=== PATIENT | male | born 1950 | race Caucasian/White ===

== ENCOUNTER 2016-04-28 13:16 | Outpatient (CLI) | payer MEDICARE ==
--- NOTE | 2016-04-28 17:14 | DIAGNOSTIC IMAGING REPORT ---
PROCEDURE: US VENOUS - BILATERAL EXT INDICATION: Bilateral nonhealing pretibial wounds. Lower extremity edema. TECHNIQUE: Duplex sonography of the deep venous system in the bilateral lower extremities was performed in the upright and semi-upright position. Compression and augmentation techniques were used. COMPARISON: None. FINDINGS: Right lower extremity: There is valvular incompetence in the right common femoral vein (1.4 seconds, 18 mm). The right superficial femoral vein is competent. There is valvular incompetence in the right greater saphenous vein (2.2 seconds, maximal diameter 6 mm). Left lower extremity: There is no evidence of valvular incompetence in the deep or superficial venous system of the left lower extremity. IMPRESSION: 1. There is valvular incompetence in the right common femoral vein. 2. There is valvular incompetence in the right greater saphenous vein. 3. There is no evidence of valvular incompetence in the left lower extremity.
--- NOTE | 2016-04-28 18:01 | DIAGNOSTIC IMAGING REPORT ---
PROCEDURE: US ART LOWER EXT WITH QUAN-B/L INDICATION: Bilateral pretibial leg wounds. Assess for arterial insufficiency. TECHNIQUE: Preexercise ABIs were performed. The patient was unable to exercise, and postexercise ABIs were not obtained. Color Doppler duplex imaging of the lower extremities was performed. COMPARISON: None. FINDINGS: RIGHT LOWER EXTREMITY: ABIs: Pre exercise ABIs are normal (posterior tibial 1.24, dorsalis pedis 1.16). VESSELS: Minimal atheromatous plaque. RIGHT LOWER EXTREMITY PEAK SYSTOLIC VELOCITIES: Common femoral artery: Triphasic 119 cm/second. Profunda femoral artery: Triphasic 52 cm/second. Proximal superficial femoral artery: Triphasic 148 cm/second. Mid superficial femoral artery: Triphasic 87 cm/second. Distal superficial femoral artery: Triphasic 90 cm/second. Popliteal artery: Triphasic 82 cm/second. Proximal posterior tibial artery: Triphasic 77 cm/second. Proximal anterior tibial artery: Triphasic 55 cm/second. Peroneal artery: N/A cm/second. Distal posterior tibial artery: Triphasic 41 cm/second. Dorsalis pedis artery: Triphasic 56 cm/second. LEFT LOWER EXTREMITY: ABIs: Pre exercise ABIs are normal (posterior tibial 1.16, dorsalis pedis 1.14). VESSELS: Minimal atheromatous plaque. LEFT LOWER EXTREMITY PEAK SYSTOLIC VELOCITIES: Common femoral artery: Triphasic 137 cm/second. Profunda femoral artery: Triphasic 48 cm/second. Proximal superficial femoral artery: Triphasic 140 to cm/second. Mid superficial femoral artery: Triphasic 97 cm/second. Distal superficial femoral artery: Triphasic 51 cm/second. Popliteal artery: Triphasic 61 cm/second. Proximal posterior tibial artery: Triphasic 61 cm/second. Proximal anterior tibial artery: Triphasic 69 cm/second. Peroneal artery: N/A cm/second. Distal posterior tibial artery: Triphasic 33 cm/second. Dorsalis pedis artery: Triphasic 41 cm/second. IMPRESSION: 1. Minimal atheromatous plaque of bilateral lower extremity arterial vascular system. 2. No evidence of arterial insufficiency with triphasic flow throughout both lower extremities.
== END 2016-04-28 23:00 ==
LOC: US SRH 13:16
DX: I87.2 Venous insufficiency (chronic) (peripheral) (principal)